=== PATIENT | male | born 1980 | race Hispanic/Latino ===

== ENCOUNTER 2022-03-10 15:25 | Inpatient (IN) | payer OTHER ==
[~2022-03-10] VITALS: Ht 165.1 cm; Wt 95.3 kg
[2022-03-10] MEDS ORDERED: DEXTROSE 50% SYRINGE 50 ML IV PRN (16:15)
[2022-03-10] MEDS ORDERED: ONDANSETRON HCL INJ 2MG/ML 2ML 2 MG/ML VIAL IV PRN (16:15)
[2022-03-10] MEDS ORDERED: SODIUM CHLORIDE FLUSH 10 ML SYR INJ PRN (16:15)
[2022-03-10] MEDS ORDERED: HYDROCODONE/APAP 5MG-325MG TAB PO PRN (16:15)
[2022-03-10] MEDS ORDERED: Morphine 4mg INJECTION 4 MG/ML INJ IV PRN (16:15)
[2022-03-10] MEDS ORDERED: SODIUM CHLORIDE 0.9% 1000ML 1,000 ML IV ONE (16:15)
[2022-03-10 16:26] LABS: BASOPHILS # (AUTO) 0.1 (0.0-0.1); BASOPHILS % 0.7 % (0.0-1.0); EOSINOPHILS # (AUTO) 0.1 (0.0-0.4); HEMATOCRIT 56.4 % (38.2-49.6); HEMOGLOBIN 18.1 g/dL (14.0-18.0); LYMPHOCYTES # (AUTO) 2.1 (1.0-3.2); LYMPHOCYTES % 24.7 % (18.0-39.1); MEAN CORPUSCULAR HEMOGLOBIN 28.4 pg (28-32); MEAN CORPUSCULAR HGB CONC 32.1 g/dL (31-35); MEAN CORPUSCULAR VOLUME 88.4 fL (81-99); MONOCYTES # (AUTO) 0.5 (0.2-0.8); MONOCYTES % 5.9 % (4.4-11.3); NEUTROPHILS # (AUTO) 5.7 (2.1-6.9); NEUTROPHILS % 66.4 % (38.7-80.0); PLATELET COUNT 209 x10e3/uL (140-360); RED BLOOD COUNT 6.38 x10e6/uL (4.3-5.7); RED CELL DISTRIBUTION WIDTH 14.7 % (11.7-14.4)
[2022-03-10 16:47] LABS: ALANINE AMINOTRANSFERASE 23 IU/L (0-55); ALBUMIN/GLOBULIN RATIO 0.7 (0.8-2.0); ALKALINE PHOSPHATASE 43 IU/L (40-150); ANION GAP 12.6 mmol/L (8-16); BLOOD UREA NITROGEN 12 mg/dL (7-26); BUN/CREATININE RATIO 8 (6-25); CALCIUM 8.9 mg/dL (8.4-10.2); CARBON DIOXIDE 30 mmol/L (22-29); CHLORIDE 98 mmol/L (98-107); CREATININE, SERUM 1.54 mg/dL (0.72-1.25); GLUCOSE 291 mg/dL (74-118); POTASSIUM 3.6 mmol/L (3.5-5.1); SODIUM 137 mmol/L (136-145)
[2022-03-10] MEDS: Vancomycin IV 1 GM in SODIUM CHLORIDE 0.9% 250ML 250 ML IV SCH (17:16)
[2022-03-10] MEDS: INSULIN REGULAR, HUMAN 100 UNIT/1 ML SQ SCH ×2 (17:36→22:22)
[2022-03-10 22:02] VITALS: BP 179/115
[2022-03-10] MEDS ORDERED: LIPITOR20 MG PO (22:28)
[2022-03-10] MEDS ORDERED: FENOFIBRATE145 MG PO (22:29)
[2022-03-10] MEDS ORDERED: OLMSRTN-AMLDPN1 EAC3 PO (22:30)
[2022-03-10] MEDS: HOME MEDICATION--PATIENTS OWN PO SCH (23:00)
[2022-03-10] MEDS ORDERED: SODIUM CHLORIDE 0.9% 250ML 250 ML ONE (23:46)
[2022-03-10] MEDS: LOSARTAN POTASSIUM 100 MG TAB PO SCH (23:47)
[2022-03-10 23:55] VITALS: BP 163/107
[2022-03-11] VITALS (10 sets, daily range): BP systolic 137–183; BP diastolic 92–120
[2022-03-11] MEDS: Vancomycin IV 1 GM in SODIUM CHLORIDE 0.9% 250ML 250 ML IV SCH ×2 (05:53→17:02)
[2022-03-11 06:40] LABS: BASOPHILS % 0.5 % (0.0-1.0); EOSINOPHILS # (AUTO) 0.1 (0.0-0.4); EOSINOPHILS % 1.2 % (0.0-6.0); HEMATOCRIT 55.9 % (38.2-49.6); HEMOGLOBIN 17.7 g/dL (14.0-18.0); LYMPHOCYTES # (AUTO) 1.8 (1.0-3.2); LYMPHOCYTES % 22.7 % (18.0-39.1); MEAN CORPUSCULAR HEMOGLOBIN 28.1 pg (28-32); MEAN CORPUSCULAR HGB CONC 31.7 g/dL (31-35); MEAN CORPUSCULAR VOLUME 88.9 fL (81-99); MONOCYTES # (AUTO) 0.5 (0.2-0.8); MONOCYTES % 6.3 % (4.4-11.3); NEUTROPHILS # (AUTO) 5.3 (2.1-6.9); NEUTROPHILS % 67.8 % (38.7-80.0); PLATELET COUNT 209 x10e3/uL (140-360); RED BLOOD COUNT 6.29 x10e6/uL (4.3-5.7); RED CELL DISTRIBUTION WIDTH 14.4 % (11.7-14.4)
[2022-03-11 06:59] LABS: ANION GAP 13.4 mmol/L (8-16); CALCIUM 8.1 mg/dL (8.4-10.2); CREATININE, SERUM 1.26 mg/dL (0.72-1.25); POTASSIUM 3.4 mmol/L (3.5-5.1)
[2022-03-11] MEDS: INSULIN REGULAR, HUMAN 100 UNIT/1 ML SQ SCH ×4 (08:55→21:24)
[2022-03-11] MEDS: LOSARTAN POTASSIUM 100 MG TAB PO SCH (08:57)
[2022-03-11] MEDS: HOME MEDICATION--PATIENTS OWN PO SCH (09:00)
[2022-03-11] MEDS ORDERED: HYDRALAZINE HCL 20 MG/ML VIAL IV ONE (12:15)
[2022-03-11] MEDS ORDERED: ATORVASTATIN 20 MG TAB PO SCH (21:00)
[2022-03-11] MEDS: MUPIROCIN 2% OINT 22 GM TUBE TOP SCH (21:13)
[2022-03-11] MEDS: ATORVASTATIN 40 MG TAB PO SCH (21:14)
[2022-03-11] MEDS: HYDRALAZINE HCL 20 MG/ML VIAL IV PRN (21:15)
[2022-03-12 00:04] VITALS: BP 149/89
[2022-03-12 03:52] VITALS: BP 163/95
[2022-03-12] MEDS: Vancomycin IV 1 GM in SODIUM CHLORIDE 0.9% 250ML 250 ML IV SCH ×2 (05:41→18:16)
[2022-03-12] MEDS: HYDROCODONE/APAP 5MG-325MG TAB PO PRN ×2 (05:44→18:15)
[2022-03-12] MEDS ORDERED: SODIUM CHLORIDE 0.9% 250ML 250 ML ONE (05:49)
[2022-03-12] MEDS: HYDRALAZINE HCL 20 MG/ML VIAL IV PRN ×2 (08:00→16:27)
[2022-03-12 08:10] VITALS: BP 154/102
[2022-03-12] MEDS: INSULIN REGULAR, HUMAN 100 UNIT/1 ML SQ SCH ×4 (08:12→22:20)
[2022-03-12 08:21] VITALS: BP 154/102
[2022-03-12] MEDS ORDERED: OLMESARTAN 20 MG TAB PO SCH (09:00)
[2022-03-12] MEDS ORDERED: HYDROCHLOROTHIAZIDE 25 MG TAB PO SCH (09:00)
[2022-03-12] MEDS: HYDROCHLOROTHIAZIDE 25 MG TAB PO SCH ×2 (09:00→11:46)
[2022-03-12] MEDS ORDERED: FENOFIBRATE 145 MG TAB PO SCH ×2 (09:00)
[2022-03-12] MEDS: AMLODIPINE BESYLATE 10 MG TAB PO SCH ×2 (09:00→11:44)
[2022-03-12] MEDS ORDERED: AMLODIPINE BESYLATE 10 MG TAB PO SCH (09:00)
[2022-03-12] MEDS ORDERED: HOME MEDICATION--PATIENTS OWN PO SCH (09:00)
[2022-03-12] MEDS: LOSARTAN POTASSIUM 100 MG TAB PO SCH ×2 (09:00→11:45)
[2022-03-12] MEDS: MUPIROCIN 2% OINT 22 GM TUBE TOP SCH ×2 (09:23→17:00)
[2022-03-12] MEDS: NAFTIFINE HCL TP SCH ×2 (09:23→18:02)
[2022-03-12 11:37] VITALS: BP 151/96
[2022-03-12] MEDS ORDERED: ONDANSETRON HCL 4 MG ORAL DISINTEGRATING TAB PO PRN (14:45)
[2022-03-12 16:08] VITALS: BP 160/99
[2022-03-12] MEDS ORDERED: ENOXAPARIN SOD INJ 40 MG/0.4 ML SYR SC SCH (17:00)
[2022-03-12] MEDS: ATORVASTATIN 40 MG TAB PO SCH (22:15)
[2022-03-13] VITALS: BP 136/80
[2022-03-13 02:43] VITALS: BP 136/80
[2022-03-13] MEDS: Vancomycin IV 1 GM in SODIUM CHLORIDE 0.9% 250ML 250 ML IV SCH (05:24)
[2022-03-13 08:32] VITALS: BP 136/93
[2022-03-13 11:47] VITALS: BP 146/82
[2022-03-13 11:51] VITALS: BP 165/112
[2022-03-13 16:08] VITALS: BP 167/107
== END 2022-03-13 16:09 | disposition home or self-care (01) | DRG 638 ==
LOC: ER 15:36 → ERHOLD 16:07 → INTOOBSV 16:07 → MED/SURG3 21:50 → OBSVTOIN 03-12 12:26
PROVIDERS: ADMIT Family Medicine; ATTEND Family Medicine
DX: E11.621 Type 2 diabetes mellitus with foot ulcer (principal); L03.115 Cellulitis of right lower limb; T25.332A Burn of third degree of left toe(s) (nail), initial encounter; L03.116 Cellulitis of left lower limb; L97.529 Non-pressure chronic ulcer of other part of left foot with unspecified severity; E11.65 Type 2 diabetes mellitus with hyperglycemia; Z79.4 Long term (current) use of insulin; Z20.822 Contact with and (suspected) exposure to COVID-19; E78.5 Hyperlipidemia, unspecified; X19.XXXA Contact with other heat and hot substances, initial encounter; Y93.89 Activity, other specified; Y92.831 Amusement park as the place of occurrence of the external cause; E11.42 Type 2 diabetes mellitus with diabetic polyneuropathy; Z79.899 Other long term (current) drug therapy; B35.9 Dermatophytosis, unspecified
CPT/HCPCS: 0223U; 36415; 80048; 80053; 80202; 82948; 83605; 85025; 87040; 93970; 94660; 94799; 99251; 99284; G0378; J0360; J1650; J1817; J2543; J3370; J7030; J7050